=== PATIENT | female | born 1980 | race Caucasian/White ===

== ENCOUNTER 2023-10-02 11:46 | Emergency (ER) | payer SELFPAY ==
[~2023-10-02] VITALS: Ht 172.7 cm; Wt 106.8 kg
[2023-10-02 11:51] VITALS: BP 139/90; TEMP 98.4
[2023-10-02] MEDS ORDERED: FLEXERIL 1010 MG/TAB PO (12:41)
[2023-10-02 12:52] VITALS: PULSE 81
== END 2023-10-02 12:55 | disposition home or self-care (01) ==
LOC: COL.ER 11:46
DX: M62.838 Other muscle spasm (principal)
CPT/HCPCS: J2360